=== PATIENT | female | born 1980 | race African-American/Black ===

== ENCOUNTER 2016-12-20 10:32 | Inpatient (IN) ==
[2016-12-20 11:00] LABS: URINE SOURCE VOIDED
[2016-12-20 11:10] LABS: BILIRUBIN URINE NEGATIVE (NEGATIVE); BLOOD URINE 4+ (NEGATIVE); CLARITY CLEAR (CLEAR); COLOR YELLOW; GLUCOSE URINE NEGATIVE (NEGATIVE); LEUKOCYTES URINE 2+ (NEGATIVE); NITRITE URINE NEGATIVE (NEGATIVE); PROTEIN URINE NEGATIVE (NEGATIVE); SP GRAVITY URINE 1.005; UROBILINOGEN URINE NORMAL
[2016-12-20] MEDS: LR 1,000 ML IV SCH ×3 (12:45→18:47)
[2016-12-20] MEDS ORDERED: ZOFRAN IV ONE (21:48)
[2016-12-21] MEDS ORDERED: XYLOCAINE-MPF 1% INJ ONE ×2 (05:33→06:33)
[2016-12-21] MEDS ORDERED: ZOFRAN IV PRN (05:43)
[2016-12-21] MEDS ORDERED: PEPCID PO PRN (05:43)
[2016-12-21] MEDS ORDERED: STADOL IV PRN (05:43)
[2016-12-21] MEDS ORDERED: PEPCID IV PRN (05:43)
[2016-12-21] MEDS ORDERED: REGLAN PO ONE (05:43)
[2016-12-21] MEDS ORDERED: PITOCIN 30 UNITS/LR 30 UNITS/500 ML IV.SOLN IV SCH (05:43)
[2016-12-21] MEDS ORDERED: TYLENOL PO PRN (05:43)
[2016-12-21] MEDS ORDERED: PEPCID PO ONE (05:43)
[2016-12-21] MEDS ORDERED: LR 1,000 ML IV SCH (05:43)
[2016-12-21] MEDS ORDERED: FENTANYL-BUPIV-NS 2 MCG-0.1% 200 ML EPIDURAL SCH (05:45)
[2016-12-21] MEDS ORDERED: SODIUM CHLORIDE 0.9% INJ SCH (05:45)
[2016-12-21 05:54] LABS: MANUAL DIFF NEEDED? NO
[2016-12-21 05:58] LABS: EOS# 0.03 X1000 (0.0-0.7); EOS% 0.4 % (0.0-10.0); HEMATOCRIT 38.2 % (37.0-47.0); HEMOGLOBIN 12.6 g/dL (12.0-16.0); IMM GRAN# 0.05 X1000 (0.0-0.04); IMM GRAN% 0.7 % (0.0-0.5); LYMPH# 2.39 X1000 (1.2-3.4); LYMPH% 32.5 % (20.5-51.1); MCH 29.3 PG (27-31); MCV 88.8 FL (81-99); MONO# 0.45 X1000 (0.11-0.59); MONO% 6.1 % (1.7-9.3); MPV 12.9 FL (7.4-10.4); NEUT% 60.3 % (42.2-75.2); PLT 123 X1000 (130-400)
[2016-12-21] MEDS ORDERED: MINERAL OIL ONE (06:33)
[2016-12-21 07:12] LABS: UR AMPHETAMINES QUAL NONE DETECTED (NONE DETECT); UR BARBITUATES QUAL NONE DETECTED (NONE DETECT); UR BENZODIAZEPIN QUAL NONE DETECTED (NONE DETECT); UR CANNABINOIDS QUAL NONE DETECTED (NONE DETECT); UR COCAINE QUAL NONE DETECTED (NONE DETECT); UR MDMA QUAL NONE DETECTED (NONE DETECT); UR METHADONE QUAL NONE DETECTED (NONE DETECT); UR METHAMPHETAMINE QUAL NONE DETECTED (NONE DETECT); UR OPIATES QUAL NONE DETECTED (NONE DETECT); UR OXYCODONE QUAL NONE DETECTED (NONE DETECT); UR PCP QUAL NONE DETECTED (NONE DETECT); UR TCA QUAL NONE DETECTED (NONE DETECT)
[2016-12-21] MEDS ORDERED: PERCOCET-10 PO PRN ×2 (07:19→07:20)
[2016-12-21] MEDS ORDERED: BOOSTRIX VACCINE IM ONE (07:20)
[2016-12-21] MEDS ORDERED: MOTRIN PO PRN (07:20)
[2016-12-21] MEDS ORDERED: XYLOCAINE-MPF 1% INJ PRN (07:20)
[2016-12-21] MEDS ORDERED: PITOCIN IM PRN (07:20)
[2016-12-21] MEDS ORDERED: AMBIEN PO PRN (07:20)
[2016-12-21] MEDS ORDERED: CYTOTEC PO PRN (07:20)
[2016-12-21] MEDS ORDERED: PITOCIN 30 UNITS/LR 30 UNITS/500 ML IV.SOLN IV ONE (07:20)
[2016-12-21] MEDS ORDERED: PERCOCET-5 PO PRN (07:20)
[2016-12-21] MEDS ORDERED: M-M-R II VACCINE SUBQ ONE (07:20)
[2016-12-21] MEDS ORDERED: HYDROXYZINE IM PRN (07:20)
[2016-12-21] MEDS ORDERED: BENADRYL PO PRN (07:20)
[2016-12-21] MEDS ORDERED: HYDROXYZINE PO PRN (07:20)
[2016-12-21] MEDS ORDERED: PERI MEDS (DERMOPLAST/NUPERCAINAL/TUCKS) MISC PRN (07:20)
[2016-12-21] MEDS ORDERED: MINERAL OIL PO PRN (07:20)
[2016-12-21] MEDS ORDERED: PITOCIN 20 UNITS/LR 20 UNITS/1,000 ML IV.SOLN IV SCH (07:20)
[2016-12-21] MEDS ORDERED: BENADRYL IV PRN (07:20)
[2016-12-21] MEDS: PERICOLACE PO SCH (21:09)
[2016-12-22 06:11] LABS: HEMATOCRIT 35.4 % (37.0-47.0); HEMOGLOBIN 11.5 g/dL (12.0-16.0); MCHC 32.5 g/dL (33-37); MCV 89.4 FL (81-99); MPV 12.9 FL (7.4-10.4); RBC 3.96 XMIL (4.2-5.4)
[2016-12-22] MEDS: PERICOLACE PO SCH (21:09)
[2016-12-23 08:56] VITALS: BP 134/75
[2016-12-23] MEDS ORDERED: FLUZONE QUAD 2017-2018 SYRINGE IM ONE (10:00)
== END 2016-12-23 16:20 | disposition home or self-care (01) ==
LOC: P.OPLD 10:32 → P.LD 10:34 → P.WC 12-21 11:53
PROVIDERS: ADMIT Obstetrics & Gynecology; ATTEND Obstetrics & Gynecology

== ENCOUNTER 2018-05-11 11:36 | Inpatient (IN) ==
[2018-05-11 12:14] LABS: URINE SOURCE VOIDED
[2018-05-11 12:15] LABS: BILIRUBIN URINE NEGATIVE (NEGATIVE); BLOOD URINE NEGATIVE (NEGATIVE); CLARITY CLEAR (CLEAR); COLOR YELLOW; GLUCOSE URINE NEGATIVE (NEGATIVE); KETONE URINE NEGATIVE (NEGATIVE); LEUKOCYTES URINE TRACE (NEGATIVE); NITRITE URINE NEGATIVE (NEGATIVE); PH URINE 6.5; PROTEIN URINE TRACE mg/dL (NEGATIVE); SP GRAVITY URINE 1.005; UROBILINOGEN URINE NORMAL
[2018-05-11] MEDS ORDERED: ZOFRAN ODT PO ONE (12:32)
[2018-05-11] MEDS ORDERED: TYLENOL PO PRN (13:40)
[2018-05-11] MEDS ORDERED: PEPCID IV PRN (13:40)
[2018-05-11] MEDS ORDERED: ZOFRAN IV PRN (13:40)
[2018-05-11] MEDS ORDERED: KEFZOL 1 GM/D5W 1 GM/50 ML IVPB IV PRN (13:40)
[2018-05-11] MEDS ORDERED: REGLAN PO ONE (13:40)
[2018-05-11] MEDS ORDERED: PEPCID PO ONE (13:40)
[2018-05-11] MEDS ORDERED: STADOL IV PRN (13:40)
[2018-05-11] MEDS ORDERED: LR 500 ML IV ONE (13:40)
[2018-05-11] MEDS ORDERED: SODIUM CHLORIDE 0.9% INJ SCH (13:45)
[2018-05-11] MEDS ORDERED: LR 1,000 ML IV SCH (13:45)
[2018-05-11] MEDS ORDERED: PITOCIN 30 UNITS/NS 30 UNIT/500 ML IV.SOLN IV SCH (13:45)
[2018-05-11 14:14] LABS: UR AMPHETAMINES QUAL NONE DETECTED (NONE DETECT); UR BARBITUATES QUAL NONE DETECTED (NONE DETECT); UR BENZODIAZEPIN QUAL NONE DETECTED (NONE DETECT); UR CANNABINOIDS QUAL NONE DETECTED (NONE DETECT); UR COCAINE QUAL NONE DETECTED (NONE DETECT); UR METHADONE QUAL NONE DETECTED (NONE DETECT); UR METHAMPHETAMINE QUAL NONE DETECTED (NONE DETECT); UR OPIATES QUAL NONE DETECTED (NONE DETECT); UR OXYCODONE QUAL NONE DETECTED (NONE DETECT); UR PCP QUAL NONE DETECTED (NONE DETECT); UR PROPOXYPHENE QUAL NONE DETECTED (NONE DETECT); UR TCA QUAL NONE DETECTED (NONE DETECT)
[2018-05-11 15:13] LABS: BASO# 0.01 X1000 (0.0-0.2); BASO% 0.1 % (0.0-0.8); EOS# 0.07 X1000 (0.0-0.7); HEMATOCRIT 38.8 % (37.0-47.0); HEMOGLOBIN 12.8 g/dL (12.0-16.0); IMM GRAN# 0.02 X1000 (0.0-0.04); IMM GRAN% 0.3 % (0.0-0.5); LYMPH# 2.43 X1000 (1.2-3.4); LYMPH% 33.1 % (20.5-51.1); MCH 28.8 PG (27-31); MCV 87.2 FL (81-99); MONO# 0.66 X1000 (0.11-0.59); MPV 12.8 FL (7.4-10.4); NEUT# 4.15 X1000 (1.4-6.5); NEUT% 56.5 % (42.2-75.2); PLT 173 X1000 (130-400); RBC 4.45 XMIL (4.2-5.4); RDW 15.1 % (11.5-14.5); WBC 7.34 X1000 (4.8-10.8)
[2018-05-11] MEDS ORDERED: XYLOCAINE-MPF 1% INJ ONE (18:02)
[2018-05-11] MEDS ORDERED: MINERAL OIL PO ONE (18:02)
--- NOTE | 2018-05-11 18:08 | HISTORY AND PHYSICAL ---
HISTORY OF PRESENT ILLNESS: The patient is a 37-year-old, , at 40 weeks and 3 days, who presents with a complaint of emesis and diarrhea since last night. The patient presented to Labor and delivery triage and given Zofran with resolution of symptoms. The patient reported positive movement, but denied regular contractions, leakage of fluid or bleeding. However, on exam, the patient was noted to be 5 cm dilated with a bulging bag. The patient denied fevers, chills, shortness of breath or chest pain. MEDICATIONS: vitamin. PAST MEDICAL HISTORY: GERD. SURGICAL HISTORY: Noncontributory. ALLERGIES: Penicillin and azithromycin. SOCIAL HISTORY: Denies tobacco use, alcohol use, or drug use. PHYSICAL EXAMINATION: VITAL SIGNS: Temperature 97.3, pulse 89, respiration rate 20, blood pressure 127/75. GENERAL: No acute distress. CARDIOVASCULAR: Positive S1, S2. RESPIRATORY: Clear to auscultation. ABDOMEN: Soft, gravid, nontender to palpation. EXTREMITIES: +1 edema. No calf tenderness. PELVIC EXAM: Sterile vaginal exam of 5 cm and 50% effacement, -3 station with bulging bag. Electronic monitoring, baseline 135 beats per minute. Moderate variability with positive accelerations, positive early decelerations. [place] 6 contractions every 6 to 5 minutes. LABS: GBS negative. Ultrasound, vertex position. ASSESSMENT: The patient is a 37-year-old, -0-0-4, at 40 weeks and 3 days in early labor. PLAN: 1. Admit to labor and delivery. 2. Continue routine labor orders. 3. GBS negative: No medications for prophylactic antibiotics for epidural K p.r.n. pain management. 4. Start Pitocin if no cervical change. 5. Estimated weight 7 pounds 6 ounces. 6. Anticipate vaginal delivery.
[2018-05-11] MEDS ORDERED: PITOCIN ONE (20:04)
[2018-05-11] MEDS ORDERED: ATARAX PO PRN (20:52)
[2018-05-11] MEDS ORDERED: HYDROXYZINE IM PRN (20:52)
[2018-05-11] MEDS ORDERED: XYLOCAINE-MPF 1% INJ PRN (20:52)
[2018-05-11] MEDS ORDERED: AMBIEN PO PRN (20:52)
[2018-05-11] MEDS ORDERED: CYTOTEC PO PRN (20:52)
[2018-05-11] MEDS ORDERED: PITOCIN IM PRN (20:52)
[2018-05-11] MEDS ORDERED: PERCOCET-10 PO PRN (20:52)
[2018-05-11] MEDS ORDERED: BENADRYL PO PRN (20:52)
[2018-05-11] MEDS ORDERED: MINERAL OIL PO PRN (20:52)
[2018-05-11] MEDS ORDERED: M-M-R II VACCINE SUBQ ONE (20:52)
[2018-05-11] MEDS ORDERED: BOOSTRIX VACCINE IM ONE (20:52)
[2018-05-11] MEDS ORDERED: BENADRYL IV PRN (20:52)
[2018-05-11] MEDS ORDERED: PERI MEDS (DERMOPLAST/NUPERCAINAL/TUCKS) MISC PRN (20:52)
[2018-05-11] MEDS: MOTRIN PO PRN (21:11)
[2018-05-11] MEDS: PERICOLACE PO SCH (21:32)
--- NOTE | 2018-05-11 23:34 | OPERATIVE NOTE ---
PROCEDURE DATE: 05/11/2018 SURGEON: Skip Samson DO. ASSISTANTS: None. PROCEDURE: At 2002 hours, the patient delivered a viable, 40 weeks and 3 days fetus weighing 7 pounds 1 ounce, with Apgars of 7 and 10 at 1 and 5 minutes, respectively. The vertex was delivered spontaneously over an intact perineum. No nuchal cord was identified. The anterior shoulder was delivered atraumatically by maternal expulsive efforts with the assistance of downward traction. The posterior shoulder delivered with maternal expulsive efforts with upward traction. The remainder of the fetus delivered spontaneously. Upon delivery, the cord was clamped and cut. The fetus was then passed to the awaiting mobile application developer staff. Cord blood was obtained for analysis. The placenta delivered spontaneously intact with a 3-vessel cord. To enhance uterine contraction, 20 units of IM oxytocin was administered. The cervix, vagina, and perineum were inspected for lacerations. No lacerations were identified. At the end of the procedure, all instruments and lap counts were correct x2.
[2018-05-12] MEDS: MOTRIN PO PRN (15:21)
[2018-05-12] MEDS: PEPCID PO PRN (20:44)
[2018-05-12] MEDS: PERICOLACE PO SCH (20:46)
[2018-05-13 08:03] VITALS: BP 144/76
[2018-05-13 08:22] LABS: BASO# 0.01 X1000 (0.0-0.2); BASO% 0.1 % (0.0-0.8); EOS# 0.05 X1000 (0.0-0.7); EOS% 0.7 % (0.0-10.0); HEMATOCRIT 31.8 % (37.0-47.0); HEMOGLOBIN 10.1 g/dL (12.0-16.0); IMM GRAN# 0.03 X1000 (0.0-0.04); IMM GRAN% 0.4 % (0.0-0.5); LYMPH# 1.97 X1000 (1.2-3.4); LYMPH% 25.9 % (20.5-51.1); MCH 28.1 PG (27-31); MCHC 31.8 g/dL (33-37); MCV 88.3 FL (81-99); MONO# 0.45 X1000 (0.11-0.59); MONO% 5.9 % (1.7-9.3); MPV 12.1 FL (7.4-10.4); NEUT# 5.11 X1000 (1.4-6.5); PLT 152 X1000 (130-400); RDW 14.9 % (11.5-14.5); WBC 7.62 X1000 (4.8-10.8)
--- NOTE | 2018-05-13 08:42 | OB/GYN PROGRESS NOTE ---
Progress Note OB - . Patient Problems: Current Active Problems Problem Status Onset Intrauterine Acute OB Progress Note: Vital Signs - 24 hr 05/12/18 11:33 05/12/18 17:34 05/12/18 20:00 Temperature 97.5 F L 97.5 F L 97.0 F L Pulse Rate 62 88 85 Respiratory Rate 20 20 18 Blood Pressure 140/66 146/70 117/64 O2 Sat by Pulse Oximetry 100 98 98 05/12/18 23:59 05/13/18 08:03 Temperature 96.7 F L 97.2 F L Pulse Rate 88 82 Respiratory Rate 18 18 Blood Pressure 123/58 144/76 O2 Sat by Pulse Oximetry 99 98 Laboratory Results - last 24 hr 05/13/18 08:10 WBC 7.62 RBC 3.60 L Hgb 10.1 L D Hct 31.8 L MCV 88.3 MCH 28.1 MCHC 31.8 L RDW Std Deviation 14.9 H Plt Count 152 MPV 12.1 H Immature Gran % (Auto) 0.4 Neut % (Auto) 67.0 Lymph % (Auto) 25.9 [place] % (Auto) 5.9 Eos % (Auto) 0.7 Baso % (Auto) 0.1 Immature Gran # (Auto) 0.03 Neut # (Auto) 5.11 Lymph # (Auto) 1.97 [place] # (Auto) 0.45 Eos # (Auto) 0.05 Baso # (Auto) 0.01 Day 2 Progress Note Ms. Dukes is a 37yo PPD 2 s/p at 40w3d of a male weighing 7lbs 1oz, APGARS 7/10. She is doing well. She is ambulating well, tolerating PO intake, and pain is controlled. She reports using one pad overnight. She denies fever, nausea, vomiting, chest pain, shortness of breath. She is bottle feeding. She desires a tubal ligation for contraception. She declines a Depo bridge to her tubal. Patient states she has four children at home to provide support, the oldest being 13yo. She also has help from her mother and FOB. Physical Exam: Vital signs above. General: Sitting up in bed with comfortably, NAD, alert, cooperative Lungs: CTAB, no adventitious breath signs, no rhonchi, rales or crackles Cardiovascular: RRR, normal S1 and S2, no MRG Abdomen: Normoactive bowel sounds, soft, appropriately tender, fundus is firm and one finger breadth below the umbilicus, no fundal tenderness Pelvis: Normal external genitalia, no blood noted on the pad Extremities: No calf tenderness or edema bilaterally Labs: See CBC results above Radiology: No new imaging Assessment: 37yo PPD 2 s/p , progressing well Plan: 1. Routine care - Pain management with Ibuprofen 800mg to be continued on discharge - Encouraged ambulation - Bottle feeding without difficulty - Contraception: Tubal ligation, patient to follow up with Dr. Callahan at 4 weeks 2. Mild anemia secondary to acute blood loss - VSS, asymptomatic - CBC otherwise normal-- will initiate Iron 325mg once daily with Colace 100mg once daily for constipation prophylaxis Disposition: Home today Marianne Camacho M.D.
[2018-05-13] MEDS ORDERED: FLU VACCINE IM ONE (09:15)
[2018-05-13] MEDS: PEPCID PO PRN (15:59)
--- NOTE | 2018-05-15 17:13 | DISCHARGE SUMMARY ---
ADMISSION DATE: 05/11/2018 DISCHARGE DATE: 05/13/2018 DISCHARGE ATTENDING PHYSICIAN: Marianne Camacho MD. PRIMARY DIAGNOSIS: 40w3d IUP, advanced maternal age DISCHARGE DIAGNOSIS: 40w3d IUP with delivery of a liveborn , advanced maternal age PROCEDURE PERFORMED: Spontaneous vaginal delivery with delivery of a live male weighing 7 pounds, 1 ounce at 2002 hours on 05/11/2018 with Apgars of 7 at one minute and 10 at five minutes, respectively. HOSPITAL COURSE: The patient was admitted in spontaneous labor on 05/11/2018. The vertex was delivered spontaneously over an intact perineum. The placenta was delivered spontaneously intact with a three-vessel cord. There were no cervical, vaginal, or perineal lacerations noted. Please see full operative report for full details. The patient's did well . She is bottle feeding the and has remained afebrile with minimal lochia since delivery. The patient was voiding and ambulating without difficulty. She declined any contraception at the time of discharge, however she plans on returning in four weeks to discuss having a tubal ligation. She is deemed stable for discharge on day #2. DISCHARGE INSTRUCTIONS: The patient was advised to remain at pelvic rest for six weeks. She was asked to call with any signs or symptoms of infection, including fever, pain, malodorous vaginal discharge, or bleeding greater than one pad per hour. She was also given warning symptoms of signs of VTE, including leg swelling, pain, erythema, shortness of breath, and chest pain. DISCHARGE MEDICATIONS: Motrin 800 mg p.o. q eight hours p.r.n. pain #30. cc: Marianne Camacho MD MTDD
== END 2018-05-13 18:43 | disposition home or self-care (01) | DRG 806 ==
LOC: P.OPLD 11:36 → P.LD 11:45
PROVIDERS: ADMIT Obstetrics & Gynecology; ATTEND Obstetrics & Gynecology
CPT/HCPCS: 59025; 80104; 80301; 80305; 81003; 85025; 86592; 90686; A9270; G0431; G0434; G0477; J2590; J7120